=== PATIENT | male | born 1990 | race African-American/Black ===

== ENCOUNTER 2019-09-24 20:15 | Emergency (ER) | payer SELFPAY ==
[~2019-09-24] VITALS: Ht 182.9 cm; Wt 82.0 kg
[2019-09-24 20:34] VITALS: BP 138/83
== END 2019-09-24 22:28 | disposition left against medical advice (07) ==
LOC: ER 20:15
DX: F23 Brief psychotic disorder (principal); F32.9 Major depressive disorder, single episode, unspecified; F15.10 Other stimulant abuse, uncomplicated; F17.210 Nicotine dependence, cigarettes, uncomplicated
CPT/HCPCS: 99284

== ENCOUNTER 2019-09-25 06:45 | Emergency (ER) | payer SELFPAY ==
[~2019-09-25] VITALS: Ht 180.3 cm; Wt 78.0 kg
[2019-09-25] MEDS ORDERED: SODIUM CHLORIDE 0.9% 1,000 ML IV ONE (07:03)
[2019-09-25] MEDS: LORAZEPAM 2MG/ML CPJ IM STA (07:03)
[2019-09-25] MEDS ORDERED: HALOPERIDOL LACTATE 5MG/ML VIAL IM STA (07:03)
[2019-09-25 08:28] LABS: CLARITY URINE CLEAR (CLEAR); COLOR URINE YELLOW (YELLOW); KETONES URINE 3+ (NEGATIVE); LEUKOCYTE ESTERASE URINE NEGATIVE (NEGATIVE); NITRITE URINE NEGATIVE (NEGATIVE); OCCULT BLOOD URINE TRACE (NEGATIVE); PROTEIN URINE TRACE (NEGATIVE)
[2019-09-25 08:50] LABS: *AMPHETAMINES SCREEN URINE PRESUMTIVE POSITIVE (NEGATIVE); *BARBITURATES SCREEN URINE NEGATIVE (NEGATIVE); *BENZODIAZEPINES SCREEN URINE NEGATIVE (NEGATIVE); *COCAINE SCREEN URINE NEGATIVE (NEGATIVE); METHADONE URINE SCREEN NEGATIVE (NEGATIVE); OPIATES URINE SCREEN NEGATIVE (NEGATIVE)
[2019-09-25 08:51] LABS: CANNABINOID URINE SCREEN PRESUMTIVE POSITIVE (NEGATIVE); PHENCYCLIDINE URINE SCREEN NEGATIVE (NEGATIVE)
[2019-09-25 09:03] LABS: BASOPHILS % 0.5 % (0.0-2.0); EOSINOPHILS % 0.1 % (0.0-5.0); HEMATOCRIT. 47.8 % (42.0-52.0); HEMOGLOBIN. 16.1 g/dL (14.0-18.0); LYMPHOCYTES % 13.8 % (20.0-50.0); MEAN CORPUSCULAR HEMOGLOBIN 29.8 pg (28.0-32.0); MEAN CORPUSCULAR VOLUME 88.2 fL (80.0-94.0); MEAN PLATELET VOLUME 8.9 fl (7.4-10.4); MONOCYTES % 6.5 % (2.0-8.0); NEUTROPHILS % 79.1 % (40.0-76.0); PLATELET 160 x1000/uL (130-400); RED BLOOD CELL COUNT 5.42 mill/uL (4.7-6.1); RED CELL DISTRIBUTION WIDTH 15.9 % (11.6-14.6)
[2019-09-25 09:05] LABS: CHLORIDE 101 mEq/L (98-107)
[2019-09-25 09:08] LABS: ETHANOL BLOOD < 10 mg/dL
[2019-09-26] MEDS ORDERED: LORAZEPAM 2MG/ML CPJ IM ONE (05:45)
[2019-09-26] MEDS ORDERED: HALOPERIDOL LACTATE 5MG/ML VIAL IM ONE (05:45)
[2019-09-26 11:24] VITALS: BP 120/80
== END 2019-09-26 11:28 | disposition home or self-care (01) ==
LOC: ER 06:50
DX: F15.10 Other stimulant abuse, uncomplicated (principal); F16.10 Hallucinogen abuse, uncomplicated; F12.10 Cannabis abuse, uncomplicated; R94.5 Abnormal results of liver function studies; F32.9 Major depressive disorder, single episode, unspecified; Z78.1 Physical restraint status
CPT/HCPCS: 36415; 80053; 80305; 80320; 81003; 85025; 96372; 99285; J1630; J2060; J7030; G0480

== ENCOUNTER 2020-07-27 02:27 | Emergency (ER) | payer MEDICAID ==
[~2020-07-27] VITALS: Ht 185.4 cm; Wt 78.0 kg
[2020-07-27 03:00] VITALS: BP 128/66
== END 2020-07-27 03:15 | disposition home or self-care (01) ==
LOC: ER 02:47
DX: F19.10 Other psychoactive substance abuse, uncomplicated (principal); R45.6 Violent behavior
CPT/HCPCS: 99283